=== PATIENT | male | born 1990 | race Caucasian/White ===

== ENCOUNTER 2018-02-18 19:01 | Emergency (ER) | payer SELFPAY ==
[~2018-02-18] VITALS: Ht 165.1 cm; Wt 68.0 kg
[2018-02-18 19:10] VITALS: Ht 165.1 cm; Wt 68.0 kg
[2018-02-18 23:01] VITALS: BP 115/81
== END 2018-02-18 23:01 | disposition home or self-care (01) ==
LOC: ED 19:01
DX: R51 Headache (principal)
CPT/HCPCS: J1885

== ENCOUNTER 2018-02-21 17:33 | Emergency (ER) | payer SELFPAY ==
[~2018-02-21] VITALS: Ht 165.1 cm; Wt 69.4 kg
[2018-02-21 17:38] VITALS: Ht 165.1 cm; Wt 69.4 kg
[2018-02-21 22:09] VITALS: BP 125/94
== END 2018-02-21 22:09 | disposition home or self-care (01) ==
LOC: ED 17:33
DX: G44.209 Tension-type headache, unspecified, not intractable (principal); R11.0 Nausea
CPT/HCPCS: J1885